=== PATIENT | female | born 1950 | race Caucasian/White ===

== ENCOUNTER → 2018-07-02 | Outpatient (CLI) | payer MEDICARE, OTHER ==
[~2018-07-02] MED LIST: ACYCLOVIR 400400 MG PO; BIOTIN 800 MCG1 EACH PO; FLEXERIL PO; GUMMI BEAR MUL1 EAC1 PO; LIPITOR20 MG PO; MAXZIDE 75-501 EACH PO; MOBIC15 MG PO; NIGHTTIME SLEEP25 M1; STRESS B-COMPL1 EACH PO; TRAMADOL 50 MG50 MG PO; VENLAFAXIN37.5 MG/1 PO; VITAMIN B-6100 MG PO; ZANTAC 150MG T150 MG PO; [UNRECOGNIZED DRUG - OTHER] PO
== END ==
LOC: M.RAD 08:07
DX: Z00.00 Encounter for general adult medical examination without abnormal findings (principal); I12.9 Hypertensive chronic kidney disease with stage 1 through stage 4 chronic kidney disease, or unspecified chronic kidney disease; N18.2 Chronic kidney disease, stage 2 (mild); E78.2 Mixed hyperlipidemia; Z78.0 Asymptomatic menopausal state

== ENCOUNTER → 2019-02-06 | Outpatient (CLI) | payer MEDICARE, OTHER ==
[~2019-02-06] MED LIST changes: +LIPITOR 20 MG T20 M1 PO; -NIGHTTIME SLEEP25 M1; +NIGHTTIME SLEEP25 M1 PO; +TYLENOL325 MG PO
== END ==
LOC: M.MRI 13:48
DX: S46.011A Strain of muscle(s) and tendon(s) of the rotator cuff of right shoulder, initial encounter (principal); X58.XXXA Exposure to other specified factors, initial encounter; Y93.89 Activity, other specified; Y92.89 Other specified places as the place of occurrence of the external cause; Y99.8 Other external cause status

== ENCOUNTER → 2019-03-03 | Outpatient (CLI) | payer MEDICARE, OTHER | END | disposition home or self-care (01) | LOC: M.RAD 02-27 14:39 | DX: M19.011 Primary osteoarthritis, right shoulder (principal); S46.011A Strain of muscle(s) and tendon(s) of the rotator cuff of right shoulder, initial encounter; S43.431A Superior glenoid labrum lesion of right shoulder, initial encounter; M75.91 Shoulder lesion, unspecified, right shoulder; G89.29 Other chronic pain; M25.511 Pain in right shoulder; X58.XXXA Exposure to other specified factors, initial encounter; Y93.89 Activity, other specified; Y92.89 Other specified places as the place of occurrence of the external cause; Y99.8 Other external cause status; Z88.8 Allergy status to other drugs, medicaments and biological substances; Z79.899 Other long term (current) drug therapy; Z98.890 Other specified postprocedural states ==

== ENCOUNTER → 2019-06-12 | Outpatient (CLI) | payer MEDICARE, OTHER | END | disposition home or self-care (01) | LOC: M.RAD 12:47 → M.MRI 13:30 | DX: M25.511 Pain in right shoulder (principal); G89.29 Other chronic pain; M75.121 Complete rotator cuff tear or rupture of right shoulder, not specified as traumatic; M75.81 Other shoulder lesions, right shoulder; Z88.8 Allergy status to other drugs, medicaments and biological substances; Z79.899 Other long term (current) drug therapy ==

== ENCOUNTER 2019-07-28 10:19 | Emergency (ER) | payer MEDICARE, OTHER ==
[~2019-07-28] VITALS: Ht 154.9 cm; Wt 67.1 kg
[2019-07-28] MEDS ORDERED: NEURONTIN 300M300 M2 PO (10:27)
[2019-07-28] MEDS ORDERED: NORCO 5-325 TA1 EAC1 PO (12:22)
[2019-07-28 12:46] VITALS: BP 107/58
== END 2019-07-28 12:47 | disposition home or self-care (01) ==
LOC: M.ERS 10:19
DX: M25.512 Pain in left shoulder (principal); E78.5 Hyperlipidemia, unspecified; K21.9 Gastro-esophageal reflux disease without esophagitis; F41.9 Anxiety disorder, unspecified; Z90.49 Acquired absence of other specified parts of digestive tract; Z90.89 Acquired absence of other organs; Z98.890 Other specified postprocedural states; Z86.14 Personal history of Methicillin resistant Staphylococcus aureus infection; Z90.710 Acquired absence of both cervix and uterus; Z96.651 Presence of right artificial knee joint; Z88.8 Allergy status to other drugs, medicaments and biological substances

== ENCOUNTER 2021-02-15 11:55 | Emergency (ER) | payer MEDICARE, OTHER ==
[~2021-02-15] VITALS: Ht 154.9 cm; Wt 72.6 kg
[~2021-02-15 11:55] MED LIST changes: +NEURONTIN 300M300 M2 PO; +NORCO 5-325 TA1 EAC1 PO
[2021-02-15] MEDS ORDERED: AMOXICILLIN 50500 MG PO (12:08)
[2021-02-15] MEDS ORDERED: TRAMADOL 50 MG50 MG PO (12:29)
[2021-02-15 12:58] VITALS: BP 165/91
== END 2021-02-15 12:59 | disposition home or self-care (01) ==
LOC: M.ERS 11:55
DX: K04.7 Periapical abscess without sinus (principal); Z79.1 Long term (current) use of non-steroidal anti-inflammatories (NSAID); Z79.2 Long term (current) use of antibiotics; Z79.899 Other long term (current) drug therapy; Z88.8 Allergy status to other drugs, medicaments and biological substances; Z86.19 Personal history of other infectious and parasitic diseases; Z90.710 Acquired absence of both cervix and uterus; Z98.890 Other specified postprocedural states

== ENCOUNTER 2021-03-10 12:47 | Emergency (ER) | payer MEDICARE, OTHER ==
[~2021-03-10] VITALS: Ht 154.9 cm; Wt 74.4 kg
[~2021-03-10 12:47] MED LIST changes: +AMOXICILLIN 50500 MG PO
[2021-03-10 16:59] VITALS: BP 135/78
== END 2021-03-10 17:00 | disposition home or self-care (01) ==
LOC: M.ERS 12:47
DX: S06.0X0A Concussion without loss of consciousness, initial encounter (principal); M54.2 Cervicalgia; E78.5 Hyperlipidemia, unspecified; F41.9 Anxiety disorder, unspecified; Z90.49 Acquired absence of other specified parts of digestive tract; Z90.89 Acquired absence of other organs; Z98.890 Other specified postprocedural states; Z90.711 Acquired absence of uterus with remaining cervical stump; Z96.651 Presence of right artificial knee joint; Z79.899 Other long term (current) drug therapy; Z79.2 Long term (current) use of antibiotics; Z88.8 Allergy status to other drugs, medicaments and biological substances; W01.198A Fall on same level from slipping, tripping and stumbling with subsequent striking against other object, initial encounter; Y93.89 Activity, other specified; Y92.89 Other specified places as the place of occurrence of the external cause; Y99.8 Other external cause status

== ENCOUNTER 2021-04-09 13:24 | Emergency (ER) | payer MEDICARE, OTHER ==
[~2021-04-09] VITALS: Ht 154.9 cm; Wt 72.6 kg
[2021-04-09] MEDS ORDERED: BENADRYL25 MG PO (13:42)
[2021-04-09 13:43] LABS: URINE BILIRUBIN NEGATIVE (Negative); URINE BLOOD 3+ (Negative); URINE COLOR YELLOW; URINE GLUCOSE-RANDOM NEGATIVE (Negative); URINE KETONES TRACE (Negative); URINE LEUKOCYTES 3+ (Negative); URINE NITRITE NEGATIVE (Negative); URINE PROTEIN 2+ (Negative); URINE SPECIFIC GRAVITY 1.015 (1.005-1.030); URINE UROBILINOGEN 0.2 E.U./dl (0.2-1.0)
[2021-04-09 13:48] LABS: URINE CLARITY CLOUDY
[2021-04-09 13:52] LABS: SQUAMOUS 4-10 Moderate /LPF (0-3); URINE WBC >25 Many /HPF (0-5)
[2021-04-09 13:53] LABS: CASTS None Seen /LPF (None Seen); CRYSTALS None Seen /LPF (None Seen); URINE RBC >20 Many /HPF (0-2)
[2021-04-09] MEDS ORDERED: AUGMENTIN 875-1 EACH PO (13:53)
[2021-04-09] MEDS ORDERED: PYRIDIUM200 MG PO (13:53)
[2021-04-09 14:00] VITALS: BP 154/79
== END 2021-04-09 14:09 | disposition home or self-care (01) ==
LOC: M.ERS 13:24
PROVIDERS: Physician Assistant
DX: N39.0 Urinary tract infection, site not specified (principal); E78.5 Hyperlipidemia, unspecified; F41.9 Anxiety disorder, unspecified; Z90.49 Acquired absence of other specified parts of digestive tract; Z90.89 Acquired absence of other organs; Z98.890 Other specified postprocedural states; Z90.711 Acquired absence of uterus with remaining cervical stump; Z86.14 Personal history of Methicillin resistant Staphylococcus aureus infection; Z79.899 Other long term (current) drug therapy; Z96.651 Presence of right artificial knee joint; Z88.8 Allergy status to other drugs, medicaments and biological substances